=== PATIENT | female | born 1960 | race Caucasian/White ===

== ENCOUNTER 2020-04-25 12:10 | Emergency (ER) | payer MEDICAID ==
--- NOTE | 2020-04-25 12:30 | EDM.PDOC ---
ED HPI GENERAL MEDICAL PROBLEM - General Stated Complaint: ARM/WRIST PAIN Time Seen by Provider: 04/25/20 12:30 Source of Information: Reports: Patient, Family (Patient's daughter) History Limitations: Reports: Other (Patient is status post stroke and history is difficult from her but the daughter gives most of the history.) - History of Present Illness INITIAL COMMENTS - FREE TEXT/NARRATIVE: 59-year-old female who had a left sided stroke resulting in right upper extremity weakness and aphasia on 02/29/2020. She was admitted to [facility] from 02/28 to 03/06 and then she was transferred to a shelter in [place] for rehabilitation where she has been until yesterday. All during this time she has complained of right upper extremity pain and there has been right upper extremity swelling. There has never been any x-ray evaluation of the upper extremity. Apparently, when the patient had her stroke she fell on her right side and may have had trauma to her right upper extremity at that time. Today, when the patient was hugging a relative, she was noted to cry out in pain and was pointing to her right upper extremity complaining of pain. She is really not able to localize the pain along her right upper extremity and her dysphasia makes it difficult as she is not really able to converse with me she seems to have pain along the entire right upper extremity from the humerus down to the hand. She rated the pain as a 5/10. She has not able to qualitate the pain. The patient's daughter was able to "fill in the gaps" of the history. The patient is awake and alert but her dysphasia did not allow her to give a complete history. No chest pain. No difficulty breathing. There are no other associated signs or symptoms. There are no other modifying factors. Right Upper Arm Pain Score (Numeric/FACES): 5 - Related Data Allergies Allergy/AdvReac Type Severity Reaction Status Date / Time No Known Allergies Allergy Verified 04/25/20 12:46 Home Meds: Home Meds Aspirin 81 mg PO DAILY 04/25/20 [History] Escitalopram [Lexapro] 10 mg PO DAILY 04/25/20 [History] Past Medical History Respiratory History: Reports: COPD Neurological History: Reports: CVA, Migraines Psychiatric History: Reports: Anxiety, Depression - Past Surgical History HEENT Surgical History: Reports: Other (See Below) (Ear surgery) Social & Family History - Tobacco Use Tobacco Use Status *Q: Former Tobacco User (Quit smoking on 02/29/2020) - Alcohol Use Alcohol Use History: No - Living Situation & Occupation Living situation: Reports: ED ROS GENERAL - Review of Systems Review Of Systems: See Below Constitutional: Reports: No Symptoms HEENT: Reports: No Symptoms Respiratory: Reports: No Symptoms Cardiovascular: Reports: No Symptoms Endocrine: Reports: No Symptoms GI/Abdominal: Reports: No Symptoms : Reports: No Symptoms Musculoskeletal: Reports: Other (Right hand dominant. Right upper extremity pain. Diffuse swelling of right upper extremity since her CVA.) Skin: Reports: No Symptoms Neurological: Reports: No Symptoms (Other than the right hemiparesis and the dysphasia) Hematologic/Lymphatic: Reports: No Symptoms Immunologic: Reports: No Symptoms ED EXAM, GENERAL - Physical Exam Exam: See Below Exam Limited By: No Limitations General Appearance: Alert, WD/WN, No Apparent Distress Eye Exam: Bilateral Eye: EOMI, Normal Inspection Ears: Normal External Exam, Hearing Grossly Normal Ear Exam: Bilateral Ear: Auricle Normal Nose: Normal Inspection, Normal Mucosa, No Blood Throat/Mouth: Normal Inspection, No Airway Compromise Head: Atraumatic, Normocephalic Neck: Normal Inspection, Supple, Non-Tender, Full Range of Motion Respiratory/Chest: No Respiratory Distress, Lungs Clear, Normal Breath Sounds, No Accessory Muscle Use, Chest Non-Tender Cardiovascular: Normal Peripheral Pulses, Regular Rate, Rhythm, No Murmur Peripheral Pulses: 4+: Radial (L), Radial (R) GI/Abdominal: Normal Bowel Sounds, Soft, Non-Tender Back Exam: Normal Inspection, Full Range of Motion Extremities: No Pedal Edema, Normal Capillary Refill, Arm Pain (Diffuse pain with palpation from the upper arm to the hand. No crepitus or bony deformity noted.) Neurological: Alert, Oriented, CN II-XII Intact, Other (Right upper extremity hemiparesis. Aphasia. These are both old status post 02/29/2020.) Psychiatric: Normal Affect Skin Exam: Warm, Dry, Intact, Normal Color, No Rash Course - Vital Signs Last Recorded V/S: Last Vital Signs Temp 36.8 C 04/25/20 12:10 Pulse 75 04/25/20 12:10 Resp 18 04/25/20 12:10 BP 124/82 03/20/21 12:10 Pulse Ox 98 04/25/20 12:10 - Orders/Labs/Meds Orders: Active Orders 24 hr Category Date Time Status Elbow Min 3V Rt [CR] Stat Exams 04/25/20 12:41 Taken Forearm 2V Rt [CR] Stat Exams 04/25/20 12:41 Taken Hand Comp Min 3V Rt [CR] Stat Exams 04/25/20 12:41 Taken Humerus Rt [CR] Stat Exams 04/25/20 12:41 Taken - Radiology Interpretation Free Text/Narrative:: X-ray of right humerus showed no definite fracture per my read. X-ray of right elbow showed no definite fracture per my read. X-ray of right forearm shows no definite fracture per my read. X-ray of right hand shows no definite fracture in the hand or the wrist per my read. - Re-Assessments/Exams Free Text/Narrative Re-Assessment/Exam: 04/25/20 13:25: Patient remains hemodynamically and neurologically stable. The x-rays were reviewed by myself and I saw no fracture or dislocation. The radiology over read is pending at this point. I discussed this with the and with her daughter. For now she should use her right upper extremity as tolerated. They should arrange to see Dr. Goodwin next week if possible. Departure - Departure Time of Disposition: 13:35 Disposition: Home, Self-Care 01 Condition: Good Clinical Impression: Pain of right upper extremity, Cerebrovascular accident (CVA) involving left cerebral hemisphere - Discharge Information Additional Instructions: The x-rays of her right upper arm, elbow, forearm, wrist and hand showed no definite fracture or dislocation. The radiologist will over read the x-rays and if there a fracture that I missed, we will call you. I am unsure why she is having the pain but I think it may be post stroke pain. You should for follow-up with Dr. Goodwin next week. She can take Tylenol 1000 mg by mouth every 6 hours as needed for pain. Back to the emergency department for redness in the right upper extremity, fever, increasing swelling or any other concerning sign or symptom. Sepsis Event Note (ED) - Evaluation Sepsis Screening Result: No Definite Risk - Focused Exam Vital Signs: Vital Signs Temp Pulse Resp BP Pulse Ox 04/25/20 12:10 36.8 C 75 18 124/82 98 - My Orders Last 24 Hours: My Active Orders 04/25/20 12:41 Elbow Min 3V Rt [CR] Stat Forearm 2V Rt [CR] Stat Hand Comp Min 3V Rt [CR] Stat Humerus Rt [CR] Stat - Assessment/Plan Last 24 Hours: My Active Orders 04/25/20 12:41 Elbow Min 3V Rt [CR] Stat Forearm 2V Rt [CR] Stat Hand Comp Min 3V Rt [CR] Stat Humerus Rt [CR] Stat
--- NOTE | 2020-04-27 12:23 | CR ---
INDICATION: Fall with injury. RIGHT HUMERUS: Frontal and lateral views of the right humerus revealed no evidence of an acute fracture, dislocation or other definite bone or joint abnormality. Adjacent ribs appear to be unremarkable. MTDD
--- NOTE | 2020-04-27 12:28 | CR ---
INDICATION: Fall with injuries. RIGHT ELBOW: Three views of the right elbow revealed minimal hypertrophic degenerative changers at the medial elbow joint compartment with joint space well maintained and no other significant bone or joint abnormality identified - bi acute fracture or dislocation or joint effusion was seen. MTDD
--- NOTE | 2020-04-27 12:31 | CR ---
INDICATION: Fall with injury. RIGHT FOREARM: Frontal and lateral views of the right forearm were obtained 04/25/20 - no comparisons. An acute fracture, dislocation or other significant bone or joint abnormality, was not identified. LUCIAD
--- NOTE | 2020-04-27 12:36 | CR ---
INDICATION: Fall with injury. RIGHT HAND: Three views of the right hand were obtained 04/25/20 - no comparisons. Moderate component with severe hypertrophic degenerative changes and subchondral cystic changes are noted at the interphalangeal joint of the thumb. The appearance may be on the basis of posttraumatic osteoarthritis and should be correlated clinically. There is some minimal degenerative change at the naviculomultangular joints and mild degenerative change at the first metacarpocarpal joint. Minimal degenerative changes are also noted at the DIPJs of the second and to lesser extent third fingers and fifth finger. Minimal [id number] change is noted at the first and second metacarpophalangeal joints. An acute fracture or dislocation was not identified. IMPRESSION: 1. No acute or dislocation. 2. Osteoarthritis. MTDD
== END 2020-04-25 13:50 | disposition home or self-care (01) ==
LOC: FB.ED 12:10
DX: I63.9 Cerebral infarction, unspecified (principal); G81.94 Hemiplegia, unspecified affecting left nondominant side; M79.621 Pain in right upper arm; J44.9 Chronic obstructive pulmonary disease, unspecified; Z87.891 Personal history of nicotine dependence; Z79.82 Long term (current) use of aspirin; Z79.899 Other long term (current) drug therapy
CPT/HCPCS: 73060-RT; 73080-RT; 73090-RT; 73130-RT; 99283; 99284

== ENCOUNTER 2020-05-26 14:20 | Emergency (ER) | payer MEDICAID ==
[2020-05-26] MEDS ORDERED: traMADol 50 MG Tab PO ONE (14:21)
[2020-05-26] MEDS ORDERED: Sodium Chloride 0.9% 10 ML Syringe FLUSH PRN (15:10)
[2020-05-26] MEDS ORDERED: Ondansetron 4 MG/2 ML SDV IVPUSH ONE (15:11)
[2020-05-26] MEDS ORDERED: Sodium Chloride 0.9% 500 ML IV ONE (15:11)
[2020-05-26] MEDS ORDERED: HYDROmorphone 2 MG/ML SDV IVPUSH ONE (15:11)
[2020-05-26] MEDS ORDERED: Sodium Chloride 0.9% 1,000 ML IV SCH (15:15)
[2020-05-26] MEDS ORDERED: Iopamidol 755 Mg/ML 100 ML Bottle IV ONE (16:46)
[2020-05-26] MEDS ORDERED: Ketorolac 30 MG/ML SDV IVPUSH ONE (17:57)
[2020-05-26] MEDS ORDERED: LORazepam 2 MG/ML SDV IVPUSH ONE (18:18)
--- NOTE | 2020-05-26 18:23 | CT ---
INDICATION: Severe abdominal pain. CT ABDOMEN AND PELVIS WITH IV CONTRAST: Spiral 3.75 mm axial sections were obtained through the abdomen and pelvis with 85 mL [id number] at 2 mL per second with sagittal and coronal reconstructions 05/26/20 - no comparisons. Total exam DLP was 429.83 mGy-cm. In the middle lobe and lingula there are some minimal areas of either fibrosis or possibly subsegmental atelectasis, also similar finding in the left lower lobe anterolaterally, no definite consolidating pneumonia or effusion was seen. The heart appears to be near the upper limits of normal in size. No pericardial effusion was seen. The liver had a normal appearance, as did the gallbladder. There was a small simple appearing cyst at the upper pole of the right kidney medially, most exophytic. The kidneys were otherwise unremarkable. The spleen and pancreas appear to be unremarkable. Common bile duct is slightly prominent in appearance appearing to measure 6.9 mm which is slightly enlarged for this age group. This finding should be correlated clinically. The intrahepatic biliary tree did not appear to be significantly enlarged. MRCP may be warranted depending upon clinical and laboratory correlation. No pancreatic head mass or calculus at the distal common bile duct could be identified. Calcifications are noted in the aorta, iliac and femoral arteries. The appendix is absent compatible with history of its removal with surgical clips in that area. No evidence of free air or bowel obstruction was identified. Scattered diverticula are noted in the descending and sigmoid colon without definite evidence of diverticulitis. The urinary bladder was not distended. The wall appears to be rather thickened which may be partly on the basis of lack of distention, but could represent cystitis - correlate clinically. Otherwise, no organomegaly, mass lesions or free fluid collections were identified in the abdomen or pelvis. IMPRESSION: 1. Thickening of the urinary bladder wall is strongly suggested - correlate clinically as it may represent cystitis. 2. Probable simple cyst upper pole right kidney. 3. ASD/probable ASHD. 4. Post appendectomy. 5. Narrowing of the L4-5 disk suggests disk disease at that level. 6. T11-12 disk disease is suggested with hypertrophic changes in the visualized thoracic spine off vertebral bodies anteriorly. 7. Minimal diverticulosis coli without evidence of diverticulitis. 8. Somewhat dilated common bile duct measuring approximately 6.9 mm, etiology indeterminate. MRCP may be warranted depending upon clinical and laboratory correlation. Report was called to Dr. Pressley at 1804 hours. [facility]
--- NOTE | 2020-05-26 18:26 | EDM.PDOC ---
ED HPI GENERAL MEDICAL PROBLEM - General Chief Complaint: Back Pain or Injury Stated Complaint: FELL DOWN STAIRS/BACK PAIN Time Seen by Provider: 05/26/20 14:50 Source of Information: Reports: Patient, Family (Patient's daughter) History Limitations: Reports: Other (Patient with expressive aphasia and has problems verbally communicating.) - History of Present Illness INITIAL COMMENTS - FREE TEXT/NARRATIVE: 59-year-old female who came back from speech therapy at 12:45 PM today and was complaining of severe pain in her back and in her right hand and wrist area. Apparently last night at about 6:45 PM she was walking down the stairs in to the living room and they were carpeted and she slipped on the stairs but did not fall just slid down the stairs and caught herself on the couch. She did not seem to have any pain at the time except in her right wrist and hand. She also seemed to be fine this morning with just some complaints of right wrist and hand pain which has been chronic since an injury several months ago. She was crying in pain today and her daughter brought her to the emergency department for evaluation. The patient has an expressive aphasia from a previous CVA and it is very difficult to get history from the patient as she cannot verbally communicate. She appears to be a level 10/10 the pain right now points to her entire abdomen and to her lumbar back when she reports the pain. She cannot describe it any more than this. There is been no nausea or vomiting. She apparently ate and drank normally this morning. She denies any chest pain. No urinary problems. There are no other associated signs or symptoms. There are no other modifying factors. 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, Cold Therapy, Heat Therapy, NSAIDS - Related Data Allergies Allergy/AdvReac Type Severity Reaction Status Date / Time No Known Allergies Allergy Verified 05/26/20 14:30 Home Meds: Home Meds Aspirin 81 mg PO DAILY 04/25/20 [History] Gabapentin [Neurontin] 100 mg PO TID 05/26/20 [History] Orphenadrine [Norflex] 100 mg PO BID PRN #12 tab 05/26/20 [Rx] buPROPion [buPROPion XL] 150 mg PO DAILY 05/26/20 [History] traMADol [Ultram] 50 mg PO Q6H PRN #12 tab 05/26/20 [Rx] Past Medical History Respiratory History: Reports: COPD Neurological History: Reports: CVA, Migraines Other Neuro History: Hx of left side stroke (due to a clot in her leg per daughter report). R sided hemiparesis. Expressive aphasia. Psychiatric History: Reports: Anxiety, Depression - Past Surgical History Other Surgical History Comment: No previous surgeries. Social & Family History - Tobacco Use Tobacco Use Status *Q: Former Tobacco User Used Tobacco, but Quit: Yes Month/Year Tobacco Last Used: 2020 - Caffeine Use Caffeine Use: Reports: Soda - Alcohol Use Alcohol Use History: No - Recreational Drug Use Recreational Drug Use: No - Living Situation & Occupation Living situation: Reports: Social History Comment: Lives with her daughter. ED ROS GENERAL - Review of Systems Review Of Systems: See Below Constitutional: Reports: No Symptoms HEENT: Reports: No Symptoms Respiratory: Reports: No Symptoms Cardiovascular: Reports: No Symptoms Endocrine: Reports: No Symptoms GI/Abdominal: Reports: Abdominal Pain. Denies: Nausea, Vomiting : Reports: No Symptoms Musculoskeletal: Reports: Back Pain (Lumbar back pain) Skin: Reports: No Symptoms Neurological: Reports: No Symptoms Psychiatric: Reports: No Symptoms Hematologic/Lymphatic: Reports: No Symptoms Immunologic: Reports: No Symptoms ED EXAM, GENERAL - Physical Exam Exam: See Below Exam Limited By: No Limitations General Appearance: Alert, WD/WN, Moderate Distress ([place] acute pain.) Eye Exam: Bilateral Eye: EOMI, Normal Inspection Ears: Normal External Exam, Hearing Grossly Normal Ear Exam: Bilateral Ear: Auricle Normal Nose: Normal Inspection, Normal Mucosa, No Blood Throat/Mouth: Normal Inspection, Normal Lips, Normal Oropharynx, Normal Voice, No Airway Compromise Head: Atraumatic, Normocephalic Neck: Normal Inspection, Supple, Non-Tender, Full Range of Motion Respiratory/Chest: No Respiratory Distress, Lungs Clear, Normal Breath Sounds, No Accessory Muscle Use, Chest Non-Tender Cardiovascular: Normal Peripheral Pulses, Regular Rate, Rhythm, No Murmur Peripheral Pulses: 2+: Radial (L), Radial (R) GI/Abdominal: Normal Bowel Sounds, Soft, No Mass, Tender (Tender diffusely.) Back Exam: Decreased Range of Motion (Secondary to pain.), Muscle Spasm (In lumbar spine.), Paraspinal Tenderness. No: Vertebral Tenderness Extremities: Normal Inspection, Normal Capillary Refill, Other (Tender to palpation diffusely over right hand and right wrist area. No crepitus. No bony deformity noted.) Neurological: Alert, Oriented, Other (Expressive aphasia. Some right-sided hemiparesis) Skin Exam: Warm, Dry, Intact, Normal Color, No Rash Course - Vital Signs Last Recorded V/S: Last Vital Signs Temp 36.7 C 05/26/20 14:20 Pulse 89 05/26/20 14:20 Resp 24 H 05/26/20 14:20 BP 114/60 05/26/20 14:20 Pulse Ox 97 05/26/20 14:20 - Orders/Labs/Meds Orders: Active Orders 24 hr Category Date Time Status Wrist Comp Min 3V Rt [CR] Stat Exams 05/26/20 15:12 Taken Peripheral IV Insertion Adult [OM.PC] Routine Oth 05/26/20 15:10 Ordered Labs: Laboratory Tests 05/26/20 05/26/20 05/26/20 Range/Units 15:20 15:20 15:20 WBC 9.7 (3.0-10.3) x10-3/uL RBC 4.38 (3.60-5.20) x10(6)uL Hgb 14.0 (11.4-15.5) g/dL Hct 41.3 (34.2-48.2) % MCV 94.3 (76.7-100.5) fL MCH 32.0 (23.9-33.9) pg MCHC 34.0 (31.9-34.8) g/dL RDW 14.1 (12.3-16.5) % Plt Count 428 (151-488) x10(3)uL MPV 7.3 (7.1-12.4) fL Neut % (Auto) 52.9 (30.8-76.2) % Lymph % (Auto) 35.8 (18.4-52.1) % Christian % (Auto) 7.0 (4.4-15.7) % Eos % (Auto) 3.2 (0.6-8.1) % Baso % (Auto) 1.1 (0.2-1.5) % Neut # (Auto) 5.1 (1.5-6.3) x10-3/uL Lymph # (Auto) 3.5 (1.0-4.4) x10-3/uL Christian # (Auto) 0.7 (0.3-1.0) x10-3/uL Eos # (Auto) 0.3 (0.0-0.8) x10-3/uL Baso # (Auto) 0.1 (0.0-0.1) x10-3/uL Sodium 143 (135-145) mmol/L Potassium 4.0 (3.5-5.3) mmol/L Chloride 104 (100-110) mmol/L Carbon Dioxide 28 (21-32) mmol/L BUN 13 (7-18) mg/dL Creatinine 1.1 H (0.55-1.02) mg/dL Est Cr Clr Drug Dosing TNP Estimated GFR (MDRD) 51 L (>60) BUN/Creatinine Ratio 11.8 (9-20) Glucose 104 (80-116) mg/dL Calcium 9.1 (8.6-10.2) mg/dL Magnesium (1.8-2.5) mg/dL Total Bilirubin 0.3 (0.1-1.3) mg/dL AST 19 (5-25) IU/L ALT 32 (12-36) U/L Alkaline Phosphatase 101 (56-112) IU/L C-Reactive Protein 0.4 L (0.5-0.9) mg/dL Total Protein 6.9 (6.0-8.0) g/dL Albumin 3.5 (3.2-4.6) g/dL Globulin 3.4 g/dL Albumin/Globulin Ratio 1.0 Lipase 165 (73-393) U/L Urine Color (YELLOW) Urine Appearance (CLEAR) Urine pH (5.0-6.5) Ur Specific Ewing (1.010-1.025) Urine Protein (NEGATIVE) mg/dL Urine Glucose (UA) (NORMAL) mg/dL Urine Ketones (NEGATIVE) mg/dL Urine Occult Blood (NEGATIVE) Urine Nitrite (NEGATIVE) Urine Bilirubin (NEGATIVE) Urine Urobilinogen (NEGATIVE) mg/dL Ur Leukocyte Esterase (NEGATIVE) Urine RBC (0-5) Urine WBC (0-5) Ur Squamous Epith Cells (NS,R,O) Urine Bacteria (NS) 05/26/20 05/26/20 Range/Units 15:20 16:37 WBC (3.0-10.3) x10-3/uL RBC (3.60-5.20) x10(6)uL Hgb (11.4-15.5) g/dL Hct (34.2-48.2) % MCV (76.7-100.5) fL MCH (23.9-33.9) pg MCHC (31.9-34.8) g/dL RDW (12.3-16.5) % Plt Count (151-488) x10(3)uL MPV (7.1-12.4) fL Neut % (Auto) (30.8-76.2) % Lymph % (Auto) (18.4-52.1) % Christian % (Auto) (4.4-15.7) % Eos % (Auto) (0.6-8.1) % Baso % (Auto) (0.2-1.5) % Neut # (Auto) (1.5-6.3) x10-3/uL Lymph # (Auto) (1.0-4.4) x10-3/uL Christian # (Auto) (0.3-1.0) x10-3/uL Eos # (Auto) (0.0-0.8) x10-3/uL Baso # (Auto) (0.0-0.1) x10-3/uL Sodium (135-145) mmol/L Potassium (3.5-5.3) mmol/L Chloride (100-110) mmol/L Carbon Dioxide (21-32) mmol/L BUN (7-18) mg/dL Creatinine (0.55-1.02) mg/dL Est Cr Clr Drug Dosing Estimated GFR (MDRD) (>60) BUN/Creatinine Ratio (9-20) Glucose (80-116) mg/dL Calcium (8.6-10.2) mg/dL Magnesium 1.9 (1.8-2.5) mg/dL Total Bilirubin (0.1-1.3) mg/dL AST (5-25) IU/L ALT (12-36) U/L Alkaline Phosphatase (56-112) IU/L C-Reactive Protein (0.5-0.9) mg/dL Total Protein (6.0-8.0) g/dL Albumin (3.2-4.6) g/dL Globulin g/dL Albumin/Globulin Ratio Lipase (73-393) U/L Urine Color Yellow (YELLOW) Urine Appearance Clear (CLEAR) Urine pH 5.0 (5.0-6.5) Ur Specific Ewing 1.025 (1.010-1.025) Urine Protein Negative (NEGATIVE) mg/dL Urine Glucose (UA) Normal (NORMAL) mg/dL Urine Ketones Negative (NEGATIVE) mg/dL Urine Occult Blood Negative (NEGATIVE) Urine Nitrite Negative (NEGATIVE) Urine Bilirubin Negative (NEGATIVE) Urine Urobilinogen Normal (NEGATIVE) mg/dL Ur Leukocyte Esterase Negative (NEGATIVE) Urine RBC 0-5 (0-5) Urine WBC 0-5 (0-5) Ur Squamous Epith Cells Few H (NS,R,O) Urine Bacteria Rare H (NS) Meds: Medications Discontinued Medications Generic Name Dose Route Start Last Admin Trade Name Gabq PRN Reason Stop Dose Admin Hydromorphone HCl 0.5 mg 05/26/20 15:11 05/26/20 15:19 Hydromorphone 2 Mg/Ml Sdv IVPUSH 05/26/20 15:12 0.5 mg ONETIME ONE Administration Sodium Chloride 500 mls @ 999 mls/hr 05/26/20 15:11 05/26/20 15:17 Normal Saline IV 05/26/20 15:41 999 mls/hr .BOLUS ONE Administration Sodium Chloride 1,000 mls @ 125 mls/hr 05/26/20 15:15 05/26/20 16:01 Normal Saline IV 125 mls/hr ASDIRECTED OSMIN Administration Iopamidol 85 ml 05/26/20 16:46 05/26/20 16:55 Iopamidol 755 Mg/Ml 100 Ml Bottle IV 05/26/20 16:47 85 ml . DIRECTED ONE Administration Ketorolac Tromethamine 30 mg 05/26/20 17:57 05/26/20 18:05 Ketorolac 30 Mg/Ml Sdv IVPUSH 05/26/20 17:58 30 mg ONETIME ONE Administration Lorazepam 1 mg 05/26/20 18:18 05/26/20 18:29 Lorazepam 2 Mg/Ml Sdv IVPUSH 05/26/20 18:19 1 mg ONETIME ONE Administration Ondansetron HCl 4 mg 05/26/20 15:11 05/26/20 15:21 Ondansetron 4 Mg/2 Ml Sdv IVPUSH 05/26/20 15:12 4 mg ONETIME ONE Administration Sodium Chloride 10 ml 05/26/20 15:10 05/26/20 15:26 Sodium Chloride 0.9% 10 Ml Syringe FLUSH 10 ml ASDIRECTED PRN Administration Keep Vein Open - Radiology Interpretation Free Text/Narrative:: CT scan of abdomen and pelvis shows mildly dilated common bile duct of unclear significance. There is also possibly a thickened bladder wall of unclear significance. This was per Dr. Cruz. CT scan of lumbar spine shows DDD and DJD but no significant abnormality per Dr. Cruz. - Re-Assessments/Exams Free Text/Narrative Re-Assessment/Exam: 05/26/20 17:50: Patient had had good relief from 0.5 mg earlier but now has reported that her pain has come back. I am awaiting the results of the CT scans of her abdomen and pelvis and her lumbar spine. Her blood tests are all reassuringly normal. Her urinalysis was clear. She has remained vitally stable. I will give the patient Toradol 30 mg IV. 05/26/20 18:00: I discussed patient's case with Dr. Cruz and he reviewed the CT scan results with me as noted above. The patient does not have any evidence of a UTI nor does she have any elevated liver function tests or amylase and I don't see any definite correlation between the findings on the abdominal CT and her symptoms here. The CT scan of her lumbar spine showed degenerative changes but no fracture and no malalignment. With her normal labs and the CT scans which are unrevealing as to the cause of her symptoms, I am unsure why she is having the symptoms of left-sided abdominal pain and back pain. This could be musculoskeletal in nature but it does not appear to be anything of a serious nature at this point. 05/26/20 18:15: I reevaluated the patient at this time and she is really having no relief from the Toradol as yet. She is reporting pain in her left flank and her back. She does have some muscle spasm in her lower back. I discussed all results with the patient and with her daughter. I answered their questions. I will give the patient Ativan 1 mg IV and I will send a prescription for tramadol for pain and Norflex for muscle relaxation. She is to follow-up with her primary provider she should avoid any strenuous activity for the next few days. Precautions and reasons for return to the emergency department were discussed with the patient's daughter while the patient was in the emergency department and were detailed in the patient's discharge instructions. They feel comfortable with the plan for discharge. A take-home pack tramadol was sent with the patient. Departure - Departure Time of Disposition: 18:30 Disposition: Home, Self-Care 01 Condition: Good (Stable.) Clinical Impression: Abdominal pain of unknown cause, Lumbar back pain, Chronic pain of right hand - Discharge Information Prescriptions: Orphenadrine [Norflex] 100 mg PO BID PRN #12 tab PRN Reason: Muscle spasm or muscle pain traMADol [Ultram] 50 mg PO Q6H PRN #12 tab PRN Reason: Moderate to severe pain Instructions: Acute Back Pain, Adult, Abdominal Pain, Adult, [id number] Referrals: Leoncio Goodwin MD [Primary Care Provider] - Forms: ED Department Discharge Additional Instructions: All of your blood tests were reassuringly normal. The urine test was normal. The x-ray of her right hand and wrist showed no fracture. The CT scans of her abdomen and pelvis and the lower back showed no evidence of fracture or any other acute abnormality to explain the patient's abdominal and flank pain and back pain. I am unsure why you are having the pain in your left side and back. It appears to be related to the near fall that you had yesterday is most probably a muscle strain. You should avoid any strenuous activity. You should ambulate as tolerated. Increase your fluid intake. Medication as prescribed (tramadol, Norflex). Follow-up with your primary provider. Back to the emergency department for marked increase in pain, blood in your urine, high fevers, severe weakness, unrelenting vomiting or any other concerning signs or symptoms. Sepsis Event Note (ED) - Evaluation Sepsis Screening Result: No Definite Risk - Focused Exam Vital Signs: Vital Signs Temp Pulse Resp BP Pulse Ox 05/26/20 14:20 36.7 C 89 24 H 114/60 97 - My Orders Last 24 Hours: My Active Orders 05/26/20 15:10 Peripheral IV Insertion Adult [OM.PC] Routine 05/26/20 15:12 Wrist Comp Min 3V Rt [CR] Stat - Assessment/Plan Last 24 Hours: My Active Orders 05/26/20 15:10 Peripheral IV Insertion Adult [OM.PC] Routine 05/26/20 15:12 Wrist Comp Min 3V Rt [CR] Stat
--- NOTE | 2020-05-26 18:32 | CT ---
INDICATION: Severe lumbar back pain after a fall. CT LUMBOSACRAL SPINE WITHOUT CONTRAST: Spiral examination of the lumbosacral spine was obtained with sagittal, coronal and axial reconstructions with the axial reconstructions through the L3-4, L4-5, and L5-S1 disk spaces. There is suggestion of very minimal decrease in disk space at L4-5. Vertebral body and disk heights appear to be fairly well maintained. Hypertrophic changes are noted off vertebral bodies anteriorly, most prominent at L4 and relatively minimal elsewhere in the lumbosacral spine, but becoming prominent again in the lower thoracic spine. There is narrowing and sclerosis of L4-5 and L5-S1, as well as L3-4 apophyseal joints most prominent at L5-S1 on the left and at L4-5 bilaterally, at L3-4 on the right. A definite acute fracture or dislocation was not identified. Degenerative changes are noted at the left sacroiliac joint with the sacroiliac joints otherwise unremarkable. There appears to be mild spinal stenosis at L2-3 and moderate spinal stenosis at L3-4, L4-5, and minimally at L5-S1 due to prominent ligamenta flava and mildly bulging disks. IMPRESSION: 1. No definite acute fracture or dislocation. 2. Disk disease L2 through S1 with some spinal stenosis present. 3. Hypertrophic degenerative changes as noted above with the only decreased disk space suggested at L4-5. Report was called to Dr. Pressley at 1804 hours. [facility]
--- NOTE | 2020-05-27 11:10 | CR ---
INDICATION: Fall with pain in right wrist and hand. RIGHT WRIST: Three views of the right wrist including most of the hand were obtained 05/26/20 and compared with right hand dated 04/25/20. Osteoarthritic changes are again noted. There is an appearance suggesting periarticular demineralization which could represent additional inflammatory arthritis. A definite acute fracture or dislocation was not identified. MTDD
== END 2020-05-26 18:45 | disposition home or self-care (01) ==
LOC: FB.ED 14:20
DX: R10.84 Generalized abdominal pain (principal); M54.5 Low back pain; M79.641 Pain in right hand; G89.29 Other chronic pain; J44.9 Chronic obstructive pulmonary disease, unspecified; Z86.73 Personal history of transient ischemic attack (TIA), and cerebral infarction without residual deficits; Z79.82 Long term (current) use of aspirin; Z79.899 Other long term (current) drug therapy; Z87.891 Personal history of nicotine dependence
CPT/HCPCS: 36415; 72131; 73110; 74177; 80053; 81001; 83690; 83735; 85025; 86140; 96374; 96375; 99284; A9270; J1170; J1885; J2060; J2405; J7030; J7040; Q9967

== ENCOUNTER 2020-11-09 13:28 | Emergency (ER) | payer MEDICAID ==
--- NOTE | 2020-11-09 14:46 | EDM.PDOC ---
ED HPI GENERAL MEDICAL PROBLEM - General Chief Complaint: Lower Extremity Injury/Pain Stated Complaint: R LEG PAIN Time Seen by Provider: 11/09/20 13:35 Source of Information: Reports: Patient History Limitations: Reports: No Limitations - History of Present Illness INITIAL COMMENTS - FREE TEXT/NARRATIVE: Patient presented to the ED because of RT leg pain. She woke up with it. There is no recent trauma or injury, no chest pain or dyspnea. Right Thigh Pain Score (Numeric/FACES): 10 - Related Data Allergies Allergy/AdvReac Type Severity Reaction Status Date / Time No Known Allergies Allergy Verified 05/26/20 14:30 Home Meds: Home Meds Aspirin 81 mg PO DAILY 04/25/20 [History] Gabapentin [Neurontin] 100 mg PO TID 05/26/20 [History] Orphenadrine [Norflex] 100 mg PO BID PRN #12 tab 05/26/20 [Rx] buPROPion [buPROPion XL] 150 mg PO DAILY 05/26/20 [History] traMADol [Ultram] 50 mg PO Q6H PRN #12 tab 05/26/20 [Rx] Apixaban [Eliquis] 2.5 mg PO BID #46 tablet 11/09/20 [Rx] Past Medical History HEENT History: Reports: Other (See Below) Respiratory History: Reports: COPD Musculoskeletal History: Reports: Other (See Below) Other Musculoskeletal History: right sided weakness post stroke Neurological History: Reports: CVA, Migraines Other Neuro History: Hx of left side stroke (due to a clot in her leg per daughter report). R sided hemiparesis. Expressive aphasia. Psychiatric History: Reports: Anxiety, Depression Hematologic History: Reports: None Oncologic (Cancer) History: Reports: None - Past Surgical History Other Surgical History Comment: No previous surgeries. Social & Family History - Family History Family Medical History: No Pertinent Family History - Caffeine Use Caffeine Use: Reports: Soda - Living Situation & Occupation Living situation: Reports: Review of Systems - Review of Systems Review Of Systems: See Below Constitutional: Reports: No Symptoms Eyes: Reports: No Symptoms Ears: Reports: No Symptoms Nose: Reports: No Symptoms Mouth/Throat: Reports: No Symptoms Respiratory: Reports: No Symptoms Cardiovascular: Reports: No Symptoms GI/Abdominal: Reports: No Symptoms Genitourinary: Reports: No Symptoms Musculoskeletal: Reports: Leg Pain Skin: Reports: No Symptoms Neurological: Reports: No Symptoms Psychiatric: Reports: No Symptoms ED EXAM, GENERAL - Physical Exam Exam: See Below Exam Limited By: No Limitations General Appearance: Alert, No Apparent Distress Ears: Normal External Exam, Normal Canal Nose: Normal Inspection, Normal Mucosa, No Blood Throat/Mouth: Normal Inspection, Normal Lips, Normal Teeth, Normal Gums Head: Atraumatic, Normocephalic Neck: Normal Inspection, Supple, Non-Tender, Full Range of Motion Respiratory/Chest: No Respiratory Distress, Lungs Clear, Normal Breath Sounds Cardiovascular: Normal Peripheral Pulses, Regular Rate, Rhythm, No Edema, No Gallop, No JVD, No Murmur, No Rub GI/Abdominal: Normal Bowel Sounds, Soft, Non-Tender, No Organomegaly, No Distention, No Abnormal Bruit Back Exam: Normal Inspection, Full Range of Motion Extremities: Normal Inspection, Normal Range of Motion, Other (tenderness rt calf area) Neurological: Alert, Oriented, CN II-XII Intact, Normal Cognition Psychiatric: Normal Affect Skin Exam: Warm Course - Vital Signs Text/Narrative:: [id number] Patient was scheduled to have a doppler US of the RLE this Wed at 12:30 pm. Fo the time being, I'll cover her with eliquis 2.5 mg twice daily until the US result is back. Continue eliquis and follow up if positive. Doppler US-negative Last Recorded V/S: Last Vital Signs Temp 36.5 C 11/09/20 13:30 Pulse 63 11/09/20 13:30 Resp 18 11/09/20 13:30 BP 105/75 11/09/20 13:30 Pulse Ox 97 11/09/20 13:30 - Orders/Labs/Meds Labs: Laboratory Tests 11/09/20 Range/Units 13:40 D-Dimer, Quantitative 0.77 H (0.0-0.59) mg/LFEU Departure - Departure Time of Disposition: 15:00 Disposition: Home, Self-Care 01 Condition: Good Clinical Impression: Elevated d-dimer - Discharge Information Prescriptions: Apixaban [Eliquis] 2.5 mg PO BID #46 tablet Instructions: D-Dimer Test Referrals: Leoncio Goodwin MD [Primary Care Provider] - Forms: ED Department Discharge Additional Instructions: Please read discharge instructions on elevated d-dimer Somebody from radiology will call you tomorrow Keep your appointment for a doppler ultrasound of your right leg Eliquis 2.5 mg twice daily for 3 days(will prescribe you more if you have blood clot in your leg) Follow up as needed Sepsis Event Note (ED) - Evaluation Sepsis Screening Result: No Definite Risk
== END 2020-11-09 15:05 | disposition home or self-care (01) ==
LOC: FB.ED 13:28
DX: R79.89 Other specified abnormal findings of blood chemistry (principal); J44.9 Chronic obstructive pulmonary disease, unspecified; Z86.73 Personal history of transient ischemic attack (TIA), and cerebral infarction without residual deficits; Z79.82 Long term (current) use of aspirin; Z79.01 Long term (current) use of anticoagulants; Z79.899 Other long term (current) drug therapy
CPT/HCPCS: 36415; 85379; 99284

== ENCOUNTER 2023-01-08 14:13 | Emergency (ER) | payer MEDICARE, MEDICAID ==
[2023-01-08] MEDS ORDERED: Sodium Chloride 0.9% 10 ML Syringe FLUSH PRN (14:21)
[2023-01-08 14:28] LABS: BASOPHILS ABSOLUTE AUTO 0.1 x10-3/uL (0.0-0.1); BASOPHILS PERCENT AUTO 0.6 % (0.2-1.5); EOSINOPHILS ABSOLUTE AUTO 0.2 x10-3/uL (0.0-0.8); EOSINOPHILS PERCENT AUTO 2.1 % (0.6-8.1); HEMATOCRIT 48.8 % (34.2-48.2); HEMOGLOBIN 16.8 g/dL (11.4-15.5); LYMPHOCYTES PERCENT AUTO 36.1 % (18.4-52.1); MEAN CORPUSCULAR HEMOGLOBIN 32.9 pg (23.9-33.9); MEAN CORPUSCULAR HGB CONC 34.4 g/dL (31.9-34.8); MEAN CORPUSCULAR VOLUME 95.9 fL (76.7-100.5); MEAN PLATELET VOLUME 8.4 fL (7.1-12.4); MONOCYTES ABSOLUTE AUTO 0.6 x10-3/uL (0.3-1.0); MONOCYTES PERCENT AUTO 5.3 % (4.4-15.7); NEUTROPHILS ABSOLUTE AUTO 6.3 x10-3/uL (1.5-6.3); PLATELET COUNT,PLT 475 x10(3)uL (151-488); RED BLOOD CELL COUNT 5.09 x10(6)uL (3.60-5.20); RED CELL DISTRIBUTION WIDTH 13.7 % (12.3-16.5); WHITE BLOOD CELL COUNT,WBC 11.2 x10-3/uL (3.0-10.3)
[2023-01-08] MEDS ORDERED: levETIRAcetam 1,500 MG in Sodium Chloride 0.9% 100 ML IV ONE (14:33)
[2023-01-08 14:35] LABS: BLOOD UREA NITROGEN,BUN 13 mg/dL (7-18); BUN/CREATININE RATIO 10.8 (9-20); CALCIUM 9.4 mg/dL (8.6-10.2); CARBON DIOXIDE,CO2 28 mmol/L (21-32); CHLORIDE,CL 104 mmol/L (100-110); CREATININE 1.2 mg/dL (0.55-1.02); ESTIMATED GFR 51 mL/min (>60); GLUCOSE RANDOM 136 mg/dL (80-116); POTASSIUM,K 4.4 mmol/L (3.5-5.3); PROTEIN TOTAL,TP 7.7 g/dL (6.0-8.0); SODIUM,NA 140 mmol/L (135-145)
[2023-01-08 14:36] LABS: A/G RATIO 0.9; ALANINE AMINOTRANSFERASE,ALT 45 U/L (12-36); ALBUMIN 3.7 g/dL (3.2-4.6); ALKALINE PHOSPHATASE 114 IU/L (56-112); ASPARTATE AMNIOTRANSFERASE,AST 21 IU/L (5-25); BILIRUBIN TOTAL 0.4 mg/dL (0.1-1.3)
[2023-01-08 14:41] LABS: PROTHROMBIN TIME 10.4 sec (9.0-11.1)
[2023-01-08 14:42] LABS: INR 1.01 (1.00-1.24); PRO B-TYPE NATRIUR PEPT,BNPPRO 11 pg/mL (<=125); PTT,PARTIAL THROMBOPLSTIN TIME 24.3 SECONDS (24.4-33.2); TROPONIN I < 4.0 pg/mL (4.0-60.3)
[2023-01-08] MEDS ORDERED: levETIRAcetam in NaCl (iso-os) 1,000 MG in Premix Bag 1 BAG IV ONE ×2 (16:11)
[2023-01-08] MEDS ORDERED: Iopamidol 755 Mg/ML 100 ML Bottle IV SCH (17:00)
[2023-01-08 17:17] LABS: APPEARANCE,URINE CLEAR (CLEAR); BACTERIA,URINE FEW (NS); BILIRUBIN,URINE NEGATIVE (NEGATIVE); COLOR,URINE YELLOW (YELLOW); GLUCOSE,URINE NORMAL (NORMAL); HYALINE CASTS,URINE FEW (NS); KETONES,URINE NEGATIVE (NEGATIVE); LEUKOCYTE ESTERASE,URINE NEGATIVE (NEGATIVE); NITRITE,URINE NEGATIVE (NEGATIVE); OCCULT BLOOD,URINE NEGATIVE (NEGATIVE); PROTEIN,URINE NEGATIVE (NEGATIVE); RBC,URINE 0-5 (0-5); SQUAMOUS EPITHELIAL CELLS,UR FEW (NS,R,O); UROBILINOGEN,URINE NORMAL (NEGATIVE); WBC,URINE 0-5 (0-5)
== END 2023-01-08 19:25 | disposition home or self-care (01) ==
LOC: FB.ED 14:13
DX: R56.9 Unspecified convulsions (principal); J44.9 Chronic obstructive pulmonary disease, unspecified; F17.210 Nicotine dependence, cigarettes, uncomplicated; Z88.8 Allergy status to other drugs, medicaments and biological substances; Z79.82 Long term (current) use of aspirin; Z79.899 Other long term (current) drug therapy
CPT/HCPCS: 36415; 70450; 70496; 70498; 71045; 80053; 81001; 82947; 83880; 84484; 85025; 85610; 85730; 93005; 96365; 96366; 99285; J1953; J3490; Q9967

== ENCOUNTER 2023-01-20 13:06 | Emergency (ER) | payer MEDICARE, MEDICAID ==
[2023-01-20] MEDS ORDERED: Sodium Chloride 0.9% 10 ML Syringe FLUSH PRN (13:29)
[2023-01-20] MEDS ORDERED: Morphine 4 MG/ML VIAL IVPUSH ONE (13:30)
[2023-01-20] MEDS ORDERED: Sodium Chloride 0.9% 1,000 ML IV SCH (13:30)
[2023-01-20 13:44] LABS: BASOPHILS ABSOLUTE AUTO 0.3 x10-3/uL (0.0-0.1); BASOPHILS PERCENT AUTO 2.5 % (0.2-1.5); EOSINOPHILS ABSOLUTE AUTO 0.2 x10-3/uL (0.0-0.8); EOSINOPHILS PERCENT AUTO 1.9 % (0.6-8.1); HEMATOCRIT 46.6 % (34.2-48.2); HEMOGLOBIN 15.9 g/dL (11.4-15.5); LYMPHOCYTES ABSOLUTE AUTO 4.2 x10-3/uL (1.0-4.4); LYMPHOCYTES PERCENT AUTO 37.1 % (18.4-52.1); MEAN CORPUSCULAR HEMOGLOBIN 31.7 pg (23.9-33.9); MEAN CORPUSCULAR VOLUME 93.2 fL (76.7-100.5); MONOCYTES ABSOLUTE AUTO 0.7 x10-3/uL (0.3-1.0); NEUTROPHILS ABSOLUTE AUTO 5.9 x10-3/uL (1.5-6.3); NEUTROPHILS PERCENT AUTO 52.5 % (30.8-76.2); PLATELET COUNT,PLT 432 x10(3)uL (151-488); RED BLOOD CELL COUNT 5.01 x10(6)uL (3.60-5.20); WHITE BLOOD CELL COUNT,WBC 11.2 x10-3/uL (3.0-10.3)
[2023-01-20 13:45] LABS: BLOOD UREA NITROGEN,BUN 17 mg/dL (7-18); BUN/CREATININE RATIO 14.2 (9-20); CALCIUM 9.5 mg/dL (8.6-10.2); CARBON DIOXIDE,CO2 31 mmol/L (21-32); CHLORIDE,CL 103 mmol/L (100-110); CREATININE 1.2 mg/dL (0.55-1.02); ESTIMATED GFR 51 mL/min (>60); GLUCOSE RANDOM 114 mg/dL (80-116); POTASSIUM,K 4.1 mmol/L (3.5-5.3); SODIUM,NA 138 mmol/L (135-145)
[2023-01-20 13:50] LABS: A/G RATIO 1.1; ALANINE AMINOTRANSFERASE,ALT 35 U/L (12-36); ALBUMIN 3.8 g/dL (3.2-4.6); ALKALINE PHOSPHATASE 106 IU/L (56-112); AMYLASE 75 U/L (25-115); ASPARTATE AMNIOTRANSFERASE,AST 17 IU/L (5-25); BILIRUBIN TOTAL 0.4 mg/dL (0.1-1.3); PROTEIN TOTAL,TP 7.4 g/dL (6.0-8.0)
[2023-01-20 13:53] LABS: LIPASE 73 U/L (16-77)
[2023-01-20 14:00] LABS: TROPONIN I < 4.0 pg/mL (4.0-60.3)
[2023-01-20] MEDS ORDERED: Iopamidol 755 Mg/ML 100 ML Bottle IV SCH (14:45)
[2023-01-20 16:03] LABS: BILIRUBIN,URINE NEGATIVE (NEGATIVE); GLUCOSE,URINE NORMAL (NORMAL); KETONES,URINE NEGATIVE (NEGATIVE); LEUKOCYTE ESTERASE,URINE LARGE (NEGATIVE); NITRITE,URINE NEGATIVE (NEGATIVE); OCCULT BLOOD,URINE NEGATIVE (NEGATIVE); PROTEIN,URINE NEGATIVE (NEGATIVE); UROBILINOGEN,URINE NORMAL (NEGATIVE)
[2023-01-20 16:11] LABS: APPEARANCE,URINE SLIGHTLY CLOUDY (CLEAR); BACTERIA,URINE MANY (NS); COLOR,URINE YELLOW (YELLOW); RBC,URINE 0-5 (0-5); SQUAMOUS EPITHELIAL CELLS,UR FEW (NS,R,O)
[2023-01-20] MEDS ORDERED: Morphine 2 MG/ML SYRINGE IVPUSH ONE (16:34)
[2023-01-20 16:52] LABS: INR 0.98 (1.00-1.24); PROTHROMBIN TIME 10.1 sec (9.0-11.1); PTT,PARTIAL THROMBOPLSTIN TIME 24.2 SECONDS (24.4-33.2)
[2023-01-20 16:53] LABS: THC SCREEN,URINE POSITIVE (NEGATIVE)
[2023-01-20 16:54] LABS: AMPHETAMINES SCREEN, URINE NEGATIVE (NEGATIVE); BARBITURATE SCREEN,URINE NEGATIVE (NEGATIVE); BENZODIAZEPINES SCREEN,URINE NEGATIVE (NEGATIVE); BUPRENORPHINE SCREEN,URINE NEGATIVE (NEGATIVE); METHADONE SCREEN, URINE NEGATIVE (NEGATIVE); METHAMPHETAMINE SCREEN, URINE NEGATIVE (NEGATIVE); OXYCODONE SCREEN,URINE NEGATIVE (NEGATIVE)
[2023-01-20] MEDS ORDERED: cefTRIAXone 2 GM Vial IVPUSH ONE (17:50)
[2023-01-20] MEDS ORDERED: cefTRIAXone 1 GM in Sodium Chloride 0.9% 50 ML IV ONE (17:57)
[2023-01-20] MEDS ORDERED: cefTRIAXone 1 GM Vial IVPUSH STA (17:59)
== END 2023-01-20 18:45 ==
LOC: FB.ED 13:06
DX: S22.32XA Fracture of one rib, left side, initial encounter for closed fracture (principal); S36.039A Unspecified laceration of spleen, initial encounter; R56.9 Unspecified convulsions; Z86.73 Personal history of transient ischemic attack (TIA), and cerebral infarction without residual deficits; J44.9 Chronic obstructive pulmonary disease, unspecified; Z79.82 Long term (current) use of aspirin; Z79.01 Long term (current) use of anticoagulants; Z79.899 Other long term (current) drug therapy; Z88.6 Allergy status to analgesic agent; W10.9XXA Fall (on) (from) unspecified stairs and steps, initial encounter; Y92.524 Gas station as the place of occurrence of the external cause
CPT/HCPCS: 36415; 71045; 73030-LT; 73030-RT; 74177; 80053; 80307; 81001; 82150; 83690; 84484; 85025; 85610; 85730; 87086; 87088; 87186; 96361; 96374; 96375; 96376; 99285-25; J0696; J2270; J7030; Q9967

== ENCOUNTER 2023-04-24 14:31 | Emergency (ER) | payer MEDICAID, MEDICARE ==
[2023-04-24 15:05] LABS: BASOPHILS ABSOLUTE AUTO 0.1 x10-3/uL (0.0-0.1); BASOPHILS PERCENT AUTO 0.9 % (0.2-1.5); EOSINOPHILS ABSOLUTE AUTO 0.1 x10-3/uL (0.0-0.8); EOSINOPHILS PERCENT AUTO 0.7 % (0.6-8.1); HEMATOCRIT 47.2 % (34.2-48.2); HEMOGLOBIN 16.3 g/dL (11.4-15.5); LYMPHOCYTES PERCENT AUTO 27.7 % (18.4-52.1); MEAN CORPUSCULAR HEMOGLOBIN 32.4 pg (23.9-33.9); MEAN CORPUSCULAR HGB CONC 34.6 g/dL (31.9-34.8); MEAN CORPUSCULAR VOLUME 93.6 fL (76.7-100.5); MEAN PLATELET VOLUME 8.2 fL (7.1-12.4); MONOCYTES ABSOLUTE AUTO 0.5 x10-3/uL (0.3-1.0); MONOCYTES PERCENT AUTO 4.7 % (4.4-15.7); NEUTROPHILS ABSOLUTE AUTO 7.2 x10-3/uL (1.5-6.3); PLATELET COUNT,PLT 361 x10(3)uL (151-488); RED BLOOD CELL COUNT 5.04 x10(6)uL (3.60-5.20); RED CELL DISTRIBUTION WIDTH 13.2 % (12.3-16.5)
[2023-04-24] MEDS: Sodium Chloride 0.9% 10 ML Syringe FLUSH PRN (15:05)
[2023-04-24] MEDS: Sodium Chloride 0.9% 1,000 ML IV ONE (15:07)
[2023-04-24 15:12] LABS: BLOOD UREA NITROGEN,BUN 15 mg/dL (7-18); BUN/CREATININE RATIO 13.6 (9-20); CALCIUM 9.3 mg/dL (8.6-10.2); CARBON DIOXIDE,CO2 25 mmol/L (21-32); CHLORIDE,CL 100 mmol/L (100-110); CREATININE 1.1 mg/dL (0.55-1.02); ESTIMATED GFR 56 mL/min (>60); GLUCOSE RANDOM 265 mg/dL (80-116); POTASSIUM,K 3.9 mmol/L (3.5-5.3); SODIUM,NA 137 mmol/L (135-145)
[2023-04-24 15:18] LABS: A/G RATIO 0.8; ALANINE AMINOTRANSFERASE,ALT 32 U/L (12-36); ALBUMIN 3.6 g/dL (3.2-4.6); ALKALINE PHOSPHATASE 112 IU/L (56-112); ASPARTATE AMNIOTRANSFERASE,AST 18 IU/L (5-25); BILIRUBIN TOTAL 0.5 mg/dL (0.1-1.3); MAGNESIUM 2.1 mg/dL (1.8-2.5); PROTEIN TOTAL,TP 7.9 g/dL (6.0-8.0)
[2023-04-24 15:20] LABS: TROPONIN I 4.2 pg/mL (4.0-60.3)
[2023-04-24 15:21] LABS: C-REACTIVE PROTEIN < 0.50 mg/dL (<0.50)
[2023-04-24 15:42] LABS: BILIRUBIN,URINE NEGATIVE (NEGATIVE); GLUCOSE,URINE >1000 mg/dL (NORMAL); KETONES,URINE NEGATIVE (NEGATIVE); LEUKOCYTE ESTERASE,URINE NEGATIVE (NEGATIVE); NITRITE,URINE NEGATIVE (NEGATIVE); OCCULT BLOOD,URINE MODERATE (NEGATIVE); PROTEIN,URINE NEGATIVE (NEGATIVE); UROBILINOGEN,URINE NORMAL (NEGATIVE)
[2023-04-24 16:02] LABS: AMORPHOUS SEDIMENT,URINE FEW; APPEARANCE,URINE SLIGHTLY CLOUDY (CLEAR); BACTERIA,URINE FEW (NS); COLOR,URINE YELLOW (YELLOW); RBC,URINE 0-5 (0-5); SQUAMOUS EPITHELIAL CELLS,UR FEW (NS,R,O); WBC,URINE 0-5 (0-5)
== END 2023-04-24 17:15 | disposition home or self-care (01) ==
LOC: FB.ED 14:31
DX: R55 Syncope and collapse (principal); E86.0 Dehydration; F17.200 Nicotine dependence, unspecified, uncomplicated; I48.91 Unspecified atrial fibrillation; J44.9 Chronic obstructive pulmonary disease, unspecified; Z91.148 Patient's other noncompliance with medication regimen for other reason; Z88.8 Allergy status to other drugs, medicaments and biological substances; Z79.01 Long term (current) use of anticoagulants; Z79.899 Other long term (current) drug therapy
CPT/HCPCS: 70450; 80053; 81001; 82947; 83735; 84484; 85025; 86140; 87086; 87088; 87186; 93005; 96360; 99284-25; J3490; J7030

== ENCOUNTER 2023-08-20 01:09 | Emergency (ER) | payer MEDICARE ==
[2023-08-20] MEDS: Aspirin 81 MG Tab.Chew PO ONE (01:38)
[2023-08-20 01:41] LABS: HEMATOCRIT 44.6 % (34.2-48.2); HEMOGLOBIN 15.8 g/dL (11.4-15.5); MEAN CORPUSCULAR HGB CONC 35.4 g/dL (31.9-34.8); MEAN CORPUSCULAR VOLUME 93.3 fL (76.7-100.5); PLATELET COUNT,PLT 417 x10(3)uL (151-488); RED BLOOD CELL COUNT 4.78 x10(6)uL (3.60-5.20); RED CELL DISTRIBUTION WIDTH 13.4 % (12.3-16.5); WHITE BLOOD CELL COUNT,WBC 15.2 x10-3/uL (3.0-10.3)
[2023-08-20 01:46] LABS: BLOOD UREA NITROGEN,BUN 14 mg/dL (7-18); BUN/CREATININE RATIO 11.7 (9-20); CALCIUM 8.7 mg/dL (8.6-10.2); CARBON DIOXIDE,CO2 25 mmol/L (21-32); CHLORIDE,CL 104 mmol/L (100-110); CREATININE 1.2 mg/dL (0.55-1.02); ESTIMATED GFR 51 mL/min (>60); GLUCOSE RANDOM 174 mg/dL (80-116); POTASSIUM,K 3.7 mmol/L (3.5-5.3); SODIUM,NA 141 mmol/L (135-145)
[2023-08-20 01:52] LABS: ALANINE AMINOTRANSFERASE,ALT 38 U/L (12-36); ALBUMIN 3.6 g/dL (3.2-4.6); ALKALINE PHOSPHATASE 99 IU/L (56-112); ASPARTATE AMNIOTRANSFERASE,AST 21 IU/L (5-25); BILIRUBIN TOTAL 0.4 mg/dL (0.1-1.3); PROTEIN TOTAL,TP 7.2 g/dL (6.0-8.0)
[2023-08-20 02:12] LABS: BAND PERCENT MAN 3 % (0-6); EOSINOPHILS PERCENT MAN 3 % (0-5); LYMPHOCYTES PERCENT MAN 36 % (13-37); MONOCYTES PERCENT MAN 8 % (4-12); SEG NEUTROPHILS PERCENT MAN 50 % (46-82)
== END 2023-08-20 05:15 | disposition left against medical advice (07) ==
LOC: FB.ED 01:09
DX: R07.89 Other chest pain (principal); J44.9 Chronic obstructive pulmonary disease, unspecified; E66.9 Obesity, unspecified; I48.91 Unspecified atrial fibrillation; F17.200 Nicotine dependence, unspecified, uncomplicated; Z86.73 Personal history of transient ischemic attack (TIA), and cerebral infarction without residual deficits; Z79.01 Long term (current) use of anticoagulants; Z79.82 Long term (current) use of aspirin; Z79.899 Other long term (current) drug therapy
CPT/HCPCS: 36415; 71045; 80053; 83880; 84484; 85025; 93005; 99285; A9270

== ENCOUNTER 2023-08-28 15:48 | Emergency (ER) | payer MEDICARE ==
[2023-08-28] MEDS ORDERED: Acetaminophen/oxyCODONE 325-5 MG Tab PO ONE (15:49)
[2023-08-28] MEDS ORDERED: Sodium Chloride 0.9% 10 ML Syringe FLUSH PRN (16:07)
[2023-08-28] MEDS ORDERED: Naloxone 0.4 MG/ML SDV IVPUSH PRN (16:12)
[2023-08-28] MEDS: Sodium Chloride 0.9% 1,000 ML IV SCH (16:22)
[2023-08-28] MEDS: Ketorolac 30 MG/ML SDV IVPUSH ONE (16:22)
[2023-08-28 16:25] LABS: BASOPHILS ABSOLUTE AUTO 0.1 x10-3/uL (0.0-0.1); EOSINOPHILS ABSOLUTE AUTO 0.2 x10-3/uL (0.0-0.8); EOSINOPHILS PERCENT AUTO 1.6 % (0.6-8.1); HEMATOCRIT 45.5 % (34.2-48.2); HEMOGLOBIN 15.3 g/dL (11.4-15.5); LYMPHOCYTES ABSOLUTE AUTO 5.5 x10-3/uL (1.0-4.4); LYMPHOCYTES PERCENT AUTO 39.1 % (18.4-52.1); MEAN CORPUSCULAR HGB CONC 33.7 g/dL (31.9-34.8); MEAN CORPUSCULAR VOLUME 92.1 fL (76.7-100.5); MEAN PLATELET VOLUME 7.7 fL (7.1-12.4); MONOCYTES ABSOLUTE AUTO 0.9 x10-3/uL (0.3-1.0); MONOCYTES PERCENT AUTO 6.8 % (4.4-15.7); NEUTROPHILS ABSOLUTE AUTO 7.2 x10-3/uL (1.5-6.3); NEUTROPHILS PERCENT AUTO 51.5 % (30.8-76.2); PLATELET COUNT,PLT 404 x10(3)uL (151-488); RED BLOOD CELL COUNT 4.94 x10(6)uL (3.60-5.20)
[2023-08-28 16:25] LABS: BILIRUBIN,URINE NEGATIVE (NEGATIVE); GLUCOSE,URINE NORMAL (NORMAL); KETONES,URINE 15 mg/dL (NEGATIVE); LEUKOCYTE ESTERASE,URINE MODERATE (NEGATIVE); NITRITE,URINE NEGATIVE (NEGATIVE); OCCULT BLOOD,URINE MODERATE (NEGATIVE); PROTEIN,URINE TRACE mg/dL (NEGATIVE); UROBILINOGEN,URINE NORMAL (NEGATIVE)
[2023-08-28 16:29] LABS: APPEARANCE,URINE CLEAR (CLEAR); COLOR,URINE YELLOW (YELLOW); RBC,URINE 0-5 (0-5)
[2023-08-28 16:30] LABS: BACTERIA,URINE MODERATE (NS); EPITHELIAL CELLS,URINE MANY
[2023-08-28 16:31] LABS: BLOOD UREA NITROGEN,BUN 14 mg/dL (7-18); BUN/CREATININE RATIO 11.7 (9-20); CALCIUM 9.2 mg/dL (8.6-10.2); CARBON DIOXIDE,CO2 28 mmol/L (21-32); CHLORIDE,CL 106 mmol/L (100-110); CREATININE 1.2 mg/dL (0.55-1.02); EST CRCL DRUG DOSING (CG) 41.44 mL/min; ESTIMATED GFR 51 mL/min (>60); GLUCOSE RANDOM 122 mg/dL (80-116); POTASSIUM,K 3.7 mmol/L (3.5-5.3); SODIUM,NA 143 mmol/L (135-145)
[2023-08-28] MEDS: Morphine 4 MG/ML VIAL IVPUSH ONE (16:32)
[2023-08-28 16:37] LABS: A/G RATIO 1.1; ALANINE AMINOTRANSFERASE,ALT 26 U/L (12-36); ALBUMIN 3.9 g/dL (3.2-4.6); ALKALINE PHOSPHATASE 92 IU/L (56-112); AMYLASE 57 U/L (25-115); ASPARTATE AMNIOTRANSFERASE,AST 14 IU/L (5-25); BILIRUBIN TOTAL 0.5 mg/dL (0.1-1.3); PROTEIN TOTAL,TP 7.5 g/dL (6.0-8.0)
[2023-08-28] MEDS: Levofloxacin 750 MG Tab PO STA (16:57)
== END 2023-08-28 18:55 | disposition home or self-care (01) ==
LOC: FB.ED 15:48
DX: N39.0 Urinary tract infection, site not specified (principal); N12 Tubulo-interstitial nephritis, not specified as acute or chronic; J44.9 Chronic obstructive pulmonary disease, unspecified; E66.9 Obesity, unspecified; Z79.899 Other long term (current) drug therapy; Z88.8 Allergy status to other drugs, medicaments and biological substances; Z68.28 Body mass index [BMI] 28.0-28.9, adult
CPT/HCPCS: 36415; 74176; 80053; 81001; 82150; 83690; 85025; 87086; 87088; 87186; 96361; 96374; 96375; 99284; A9270; J1885; J2270; J7030

== ENCOUNTER 2024-10-13 22:58 | Emergency (ER) | payer MEDICARE ==
[2024-10-13] MEDS: fentaNYL 100 MCG/2 ML SDV IVPUSH ONE (23:26)
[2024-10-13 23:28] LABS: MEAN PLATELET VOLUME 7.8 fL (7.1-12.4); PLATELET COUNT,PLT 412 x10(3)uL (151-488); RED BLOOD CELL COUNT 4.70 x10(6)uL (3.60-5.20); RED CELL DISTRIBUTION WIDTH 13.8 % (12.3-16.5); WHITE BLOOD CELL COUNT,WBC 14.1 x10-3/uL (3.0-10.3)
[2024-10-13 23:42] LABS: BLOOD UREA NITROGEN,BUN 16 mg/dL (7-18); CARBON DIOXIDE,CO2 27 mmol/L (21-32); CHLORIDE,CL 105 mmol/L (100-110); CREATININE 1.3 mg/dL (0.55-1.02); ESTIMATED GFR 46 mL/min (>60); GLUCOSE RANDOM 105 mg/dL (80-116); POTASSIUM,K 3.7 mmol/L (3.5-5.3); SODIUM,NA 141 mmol/L (135-145)
[2024-10-13 23:48] LABS: A/G RATIO 1.1; ALANINE AMINOTRANSFERASE,ALT 21 U/L (12-36); ASPARTATE AMNIOTRANSFERASE,AST 10 IU/L (5-25); BILIRUBIN TOTAL 0.3 mg/dL (0.1-1.3); PROTEIN TOTAL,TP 7.0 g/dL (6.0-8.0)
[2024-10-13 23:51] LABS: BAND PERCENT MAN 2 % (0-6); EOSINOPHILS PERCENT MAN 2 % (0-5); LYMPHOCYTES PERCENT MAN 41 % (13-37); MONOCYTES PERCENT MAN 7 % (4-12); SEG NEUTROPHILS PERCENT MAN 48 % (46-82)
== END 2024-10-14 00:22 | disposition home or self-care (01) ==
LOC: FB.ED 22:58
DX: J18.9 Pneumonia, unspecified organism (principal); I48.91 Unspecified atrial fibrillation; J44.9 Chronic obstructive pulmonary disease, unspecified; Z86.73 Personal history of transient ischemic attack (TIA), and cerebral infarction without residual deficits; Z88.8 Allergy status to other drugs, medicaments and biological substances; Z79.899 Other long term (current) drug therapy
CPT/HCPCS: 36415; 71045; 80053; 82947; 84484; 85025; 93005; 96374; 99284; A9270; J3010; 93010